=== PATIENT | female | born 1970 | race Caucasian/White ===

== ENCOUNTER 2022-09-13 09:38 | Emergency (ER) | payer OTHER, SELFPAY ==
[2022-09-13 09:49] VITALS: BP 166/98; PULSE 87; RESP 16; TEMP 36.6; O2SAT 94
--- NOTE | 2022-09-13 10:17 | ED.URI ---
HPI - URI/Sore Throat General Chief Complaint: Upper Respiratory Infection Stated Complaint: cough Time Seen by Provider: 09/13/22 10:13 Source: patient and RN notes reviewed Mode of arrival: ambulatory Limitations: no limitations History of Present Illness HPI Narrative: 52-year-old female with history of asthma presents with concern for 2 week history of sinus congestion, sinus drainage, pain, cough, shortness of breath. She reports she ran out of her albuterol inhaler and her nebulize solution. She last used that medication more than 4 days ago. She reports she has been taking other ofir-etu-fwwzoav medications like Sudafed and Mucinex. MD elicited complaint: cough, nasal congestion and sinus pain Related Data Allergies Allergy/AdvReac Type Severity Reaction Status Date / Time Penicillins Allergy Rash Verified 09/13/22 10:38 Review of Systems Review of Systems: CONSTITUTIONAL: Reports malaise. Denies chills, sweats, or fever. EYES: Denies visual changes, redness, or discharge. ENT: Reports rhinorrhea, congestion, sinus pain. Denies otalgia and sore throat. CARDIOVASCULAR: Denies chest pain, palpitations, or edema. RESPIRATORY: Reports productive cough, dyspnea. GASTROINTESTINAL: Denies abdominal pain, nausea, vomiting, diarrhea SKIN: Denies rash or itching. MUSCULOSKELETAL: Denies myalgia. NEUROLOGIC: Denies headache. All systems reviewed & are unremarkable except as noted in HPI and below PMFSH Comments At time of signature, agree with nursing past medical, surgical, social and family history. There is no relevant family history pertinent to the presenting complaint Exam Narrative: GENERAL: Nontoxic-appearing and in no acute distress. HEAD: Normocephalic EYES: PERRLA, conjunctivae clear ENT: Nares clear, turbinates edematous and erythematous, watkins discharge. Mucous membranes moist. TM pearly flowers with dull light reflex bilaterally; no tragal tenderness. Oropharynx not erythematous without lesions. Tonsils not enlarged and without exudate, no drooling, no hoarseness, no trismus, uvula midline. NECK: Supple. No lymphadenopathy CHEST: Inspiratory and expiratory wheeze, aeration poor, scattered rhonchi. No rales, or stridor. No respiratory distress, speaks in full sentences. HEART: Regular rate and rhythm. No murmur heard. SKIN: Warm, dry, no rash. NEURO: Alert and oriented x3. PSYCH: Normal mood and affect Course Course Emergency Course: Patient is aware of diagnosis, understands and agrees to treatment plan. Anticipatory guidance given. Patient agrees to follow-up as directed and is aware of reasons to seek care at the emergency department. Portions of this record may have been created with voice recognition software Level of Care: Express Care Visit Reevaluation(s) Reevaluation #1: After DuoNeb Patient's aeration improved, she still has scattered inspiratory and expiratory wheeze. Reports her shortness of breath has improved. Date: 09/13/22 Time: 10:50 Vital Signs Vital signs: Vital Signs Temperature 97.8 F 09/13/22 09:49 Pulse Rate 87 09/13/22 09:49 Respiratory Rate 16 09/13/22 09:49 Blood Pressure 166/98 H 09/13/22 09:49 Pulse Oximetry 94 09/13/22 09:49 Oxygen Delivery Room Air 09/13/22 09:49 Temperature 97.8 F 09/13/22 09:49 Pulse Rate 87 09/13/22 09:49 Respiratory Rate 16 09/13/22 09:49 Blood Pressure 166/98 H 09/13/22 09:49 Pulse Oximetry 94 09/13/22 09:49 Oxygen Delivery Room Air 09/13/22 09:49 Reviewed. MDM - URI/Sore Throat MDM Narrative Medical decision making narrative: Differential diagnosis considered: Davidson virus, strep pharyngitis, allergic rhinitis, upper respiratory tract infection, sinusitis, rhinosinusitis, nasopharyngitis. viral pharyngitis, otitis media, otitis externa, pneumonia, bronchitis, viral cough syndrome, viral syndrome, and influenza. Exam findings show no acute concerns or changes; patient is non-toxic appearing and is in no d
[2022-09-13 10:29] VITALS: PULSE 87; RESP 16; O2SAT 94
[2022-09-13] MEDS: ALBUTEROL SULFATE NEB 2.5 MG/3 ML INH INHALATION (10:34)
[2022-09-13] MEDS: IPRATROPIUM BR 0.02% INH SOLN 0.5 MG/2.5 ML VIAL INHALATION (10:35)
== END 2022-09-13 11:10 | disposition home or self-care (01) ==
PROVIDERS: Emergency Provider Nurse Practitioner
DX: J01.90 Acute sinusitis, unspecified (principal); B96.89 Other specified bacterial agents as the cause of diseases classified elsewhere; J45.901 Unspecified asthma with (acute) exacerbation; Z20.822 Contact with and (suspected) exposure to COVID-19
CPT/HCPCS: 87426; 94640; 99203; C9803; G0463